=== PATIENT | female | born 1960 | race Caucasian/White ===

== ENCOUNTER 2017-03-23 18:13 | Emergency (ER) | payer MEDICAID ==
[~2017-03-23] VITALS: Ht 160 cm; Wt 74.0 kg
[~2017-03-23 18:13] MED LIST: FER325 PO
[2017-03-23 18:14] VITALS: Ht 160 cm; Wt 74.0 kg
[2017-03-23] MEDS ORDERED: HYDROCODONE/APAP (5/325) TAB PO ONE (19:30)
--- NOTE | 2017-03-23 19:51 | RADRPT ---
PROCEDURE: XR right foot. CLINICAL INDICATION: Trauma TECHNIQUE: AP, lateral and oblique views of the right foot were obtained. COMPARISON: None. FINDINGS: Mineralization is within normal limits. No fracture or osseous lesion is identified. There is no e vidence for dislocation. Joint spaces are preserved. Diffuse soft tissue swelling is present . The re is no evidence for radiopaque foreign body. RPTAT:HJJR IMPRESSION: Soft tissue swelling without evidence of acute osseous abnormality involving the right foot. Physician Juan Manuel Date Time Electronically viewed and signed by Physician Juan Manuel on 03/23/2017 19:51 /
--- NOTE | 2017-03-23 19:52 | RADRPT ---
PROCEDURE: X-ray right ankle. CLINICAL INDICATION: Fall with injury in the right ankle. TECHNIQUE: 3 views right ankle. COMPARISON: None FINDINGS: Oblique fracture of the distal diaphysis of the right fibula at level of syndesmosis with overlying soft tissue swelling. Remaining osseous structures are without acute fracture. IMPRESSION: Oblique fracture of the distal diaphysis of the right fibula. RPTAT: [facility] Physician Kacy Date Time Electronically viewed and signed by Physician Kacy on 03/23/2017 19:51 RS/
--- NOTE | 2017-03-23 19:52 | RADRPT ---
PROCEDURE: XR Tibia and Fibula. CLINICAL INDICATION: Trauma TECHNIQUE: AP and lateral of the right tibia and fibula were obtained. COMPARISON: None available FINDINGS: There is normal mineralization and alignment. Spiral fracture of the distal fibula is present below the syndesmosis. The remaining fibula is intact. No tibia abnormality is demonstrated. There are nor mal soft tissues without evidence of soft tissue swelling or radiopaque foreign body. RPTAT:HJJR IMPRESSION: Acute, closed, nondisplaced spiral type fracture involving the distal right fibula below the syndesm osis. Physician Juan Manuel Date Time Electronically viewed and signed by Physician Juan Manuel on 03/23/2017 19:52 /
--- NOTE | 2017-03-23 20:08 | ERD ---
ER Documentation Chief Complaint Chief Complaint right foot pain s/p fall HPI This is a 57-year-old female who presents to the emergency department today complaining of right lower leg pain after slipping and falling off of a chair trying to reach for something. Denies any previous trauma. States she has not taken any medication for the pain. States she is unable to ambulate. ROS All systems reviewed and are negative except as per history of present illness. Medications Home Meds Active Scripts Naproxen* (Naprosyn*) 500 Mg Tablet, 500 MG PO BID Y for PAIN AND/OR INFLAMMATION, #30 TAB Prov:ABELARDO DACOSTA PA-C 03/23/17 Hydrocodone/Acetaminophen ([place] 5-325 Tablet) 1 Each Tablet, 1 TAB PO Q6H Y for PAIN, #12 TAB Prov:ABELARDO DACOSTA PA-C 03/23/17 Ferrous Sulfate* (Ferrous Sulfate*) 325 Mg Tabec, 325 MG PO DAILY, #30 TAB Prov:JAYSON MCGUIRE 10/14/15 Allergies Allergies: Coded Allergies: No Known Drug Allergies (Verified Allergy, Unknown, 03/23/17) PMhx/Soc History of Surgery: Yes (thumb, cholecystectomy) Anesthesia Reaction: No Hx Neurological Disorder: No Hx Respiratory Disorders: No Hx Cardiac Disorders: No Hx Miscellaneous Medical Probl: Yes (Diabetes, HTN, HLD) Hx Alcohol Use: Yes (rarely) Hx Substance Use: No Hx Tobacco Use: Yes (used to smoke cigarettes) Smoking Status: Current some day smoker Physical Exam Vitals Vital Signs Date Time Temp Pulse Resp B/P Pulse Ox O2 Delivery O2 Flow Rate FiO2 03/23/17 18:14 98.7 106 18 138/88 98 Physical Exam Const: sitting in wheelchair, NAD Head: Atraumatic Eyes: Normal Conjunctiva ENT: Normal External Ears, Nose and Mouth. Neck: Full range of motion..~ No meningismus. Resp: Clear to auscultation bilaterally Cardio: Regular rate and rhythm, no murmurs Skin: No petechiae or rashes MSk: Right ankle with no obvious deformity. Mild to moderate effusion over lateral aspect of ankle. Diffusely tender to palpation tibia-fibula, lateral malleolus and diffusely over foot. Pulses 2+. Distal neurovascular intact. Unable to assess range of motion secondary to pain. Neur: Awake and alert Psych: Normal Mood and Affect Results 24 hrs Current Medications Medications (Trade) Dose Ordered Sig/[place] Route PRN Reason Start Time Stop Time Status Last Admin Dose Admin Acetaminophen/ Hydrocodone Bitart ([place] (5/325)) 1 tab ONCE ONCE PO 03/23/17 19:30 03/23/17 19:31 DC 03/23/17 19:48 DIAGNOSTIC IMAGING REPORT Patient: ANTIONE LAL : 1960 Age: 57 Sex: F MR #: [id number] DOS: 03/23/17 0000 Ordering MD: ABELARDO DACOSTA PA-C Location: [facility] Room/Bed: PROCEDURE: X-ray right ankle. CLINICAL INDICATION: Fall with injury in the right ankle. TECHNIQUE: 3 views right ankle. COMPARISON: None FINDINGS: Oblique fracture of the distal diaphysis of the right fibula at level of syndesmosis with overlying soft tissue swelling. Remaining osseous structures are without acute fracture. IMPRESSION: Oblique fracture of the distal diaphysis of the right fibula. RPTAT: [facility] Physician Kacy Date Time Electronically viewed and signed by Physician Kacy on 03/23/2017 19:51 RS/ CC: ABELARDO DACOSTA PA-C DIAGNOSTIC IMAGING REPORT Patient: ANTIONE LAL : 1960 Age: 57 Sex: F MR #: [id number] DOS: 03/23/17 0000 Ordering MD: ABELARDO DACOSTA PA-C Location: [facility] Room/Bed: PROCEDURE: XR Tibia and Fibula. CLINICAL INDICATION: Trauma TECHNIQUE: AP and lateral of the right tibia and fibula were obtained. COMPARISON: None available FINDINGS: There is normal mineralization and alignment. Spiral fracture of the distal fibula is present below the syndesmosis. The remaining fibula is intact. No tibia abnormality is demonstrated. There are normal soft tissues without evidence of soft tissue swelling or radiopaque foreign body. RPTAT:HJJR IMPRESSION: Acute, closed, nondisplaced spiral type fracture involving the distal right fibula below the syndesmosis. Armando Jalloh Physician Date Time Electronically viewed and signed by Physician Juan Manuel on 03/23/2017 19:52 JR/ CC: ABELARDO DACOSTA PA-C DIAGNOSTIC IMAGING REPORT Patient: ANTIONE LAL : 1960 Age: 57 Sex: F MR #: [id number] DOS: 03/23/17 0000 Ordering MD: ABELARDO DACOSTA PA-C Location: [facility] Room/Bed: PROCEDURE: XR right foot. CLINICAL INDICATION: Trauma TECHNIQUE: AP, lateral and oblique views of the right foot were obtained. COMPARISON: None. FINDINGS: Mineralization is within normal limits. No fracture or osseous lesion is identified. There is no evidence for dislocation. Joint spaces are preserved. Diffuse soft tissue swelling is present . There is no evidence for radiopaque foreign body. RPTAT:HJJR IMPRESSION: Soft tissue swelling without evidence of acute osseous abnormality involving the right foot. Physician Juan Manuel Date Time Electronically viewed and signed by Physician Juan Manuel on 03/23/2017 19:51 JR/ CC: ABELARDO DACOSTA PA-C Procedures/MDM This is a 57-year-old female who presents the emergency department today complaining of lower extremity pain after slipping and falling off a chair while trying to grab something above her. Given patient's complaints and physical exam of diffuse tenderness palpation and effusion I did obtain images. Per the radiology report images of the right tib-fib and ankle show an oblique fracture of the distal diaphysis of the right fibula at the level of the syndesmosis with overlying soft tissue swelling. There is no evidence of dislocation. Images of the foot show soft tissue swelling without evidence of acute osseous abnormality. There is no evidence for dislocation or fracture. Patient was given [place] here in the emergency department. I will give her a prescription for [place], Naprosyn for home. She was placed in a splint. She was distally neurovascularly intact pre-and post splint application. At time of discharge patient was trying to decide whether she wanted crutches or a walker to help ambulate. She was instructed to follow-up with her primary care doctor tomorrow for referral to field marketing specialist. At this time the patient is stable for discharge and outpatient management. Patient should follow up with their PCP in the next 1-2 days. They may return to the emergency department sooner for any persistent or worsening of symptoms. Patient understood and agreed with the plan. Departure Diagnosis: Primary Impression: Fall Encounter type: initial encounter Qualified Code: W19.XXXA - Fall, initial encounter Additional Impression: Fibula fracture Encounter type: initial encounter Fibula location: distal Fracture type: closed Fracture morphology: unspecified fracture morphology Laterality: right Qualified Code: S82.831A - Closed fracture of distal end of right fibula , unspecified fracture morphology, initial encounter Condition: Fair ABELARDO DACOSTA PA-C Mar 23, 2017 20:08
[2017-03-23] MEDS ORDERED: NAPR-260 PO (20:48)
[2017-03-23] MEDS ORDERED: HYDR-906 PO (20:48)
[2017-03-23 21:33] VITALS: BP 129/74; PULSE 98; RESP 18; TEMP 97.8
== END 2017-03-23 21:33 | disposition home or self-care (01) ==
LOC: FTE 18:13
DX: S82.831A Other fracture of upper and lower end of right fibula, initial encounter for closed fracture (principal); E11.9 Type 2 diabetes mellitus without complications; I10 Essential (primary) hypertension; F17.210 Nicotine dependence, cigarettes, uncomplicated; W07.XXXA Fall from chair, initial encounter; Y92.9 Unspecified place or not applicable
CPT/HCPCS: 29515; 73590; 73610; 73630; Z7502; Z7610